=== PATIENT | male | born 1960 | race Two or more races ===

== ENCOUNTER → 2024-02-13 | Outpatient (BNVA) | payer MEDICARE, MEDICAID, SELFPAY | END | disposition home or self-care (01) | PROVIDERS: PCP Internal Medicine; Referring Provider Internal Medicine; Visit Provider Urology | DX: C61 Malignant neoplasm of prostate (principal); Z90.79 Acquired absence of other genital organ(s); N52.9 Male erectile dysfunction, unspecified; R32 Unspecified urinary incontinence; E11.9 Type 2 diabetes mellitus without complications; I10 Essential (primary) hypertension; E66.01 Morbid (severe) obesity due to excess calories; Z68.33 Body mass index [BMI] 33.0-33.9, adult | CPT/HCPCS: 81003; 99212; G0463 ==

== ENCOUNTER → 2024-05-28 | Outpatient (BNVA) | payer MEDICARE, MEDICAID, SELFPAY | END | disposition home or self-care (01) | PROVIDERS: PCP Internal Medicine; Referring Provider Internal Medicine; Visit Provider Urology | DX: C61 Malignant neoplasm of prostate (principal); N39.46 Mixed incontinence; N52.9 Male erectile dysfunction, unspecified; Z90.79 Acquired absence of other genital organ(s); E11.9 Type 2 diabetes mellitus without complications; I10 Essential (primary) hypertension; E66.01 Morbid (severe) obesity due to excess calories; Z68.33 Body mass index [BMI] 33.0-33.9, adult | CPT/HCPCS: 81003; 99212; G0463 ==

== ENCOUNTER → 2024-10-29 | Outpatient (BNVA) | payer MEDICARE, MEDICAID, SELFPAY | END | disposition home or self-care (01) | PROVIDERS: PCP Internal Medicine; Referring Provider Internal Medicine; Visit Provider Urology | DX: C61 Malignant neoplasm of prostate (principal); N39.3 Stress incontinence (female) (male); N52.9 Male erectile dysfunction, unspecified; E11.9 Type 2 diabetes mellitus without complications; I10 Essential (primary) hypertension; E66.01 Morbid (severe) obesity due to excess calories; Z68.33 Body mass index [BMI] 33.0-33.9, adult | CPT/HCPCS: 81003; 99212; G0463 ==